=== PATIENT | male | born 1965 | race Caucasian/White ===

== ENCOUNTER 2016-12-25 00:50 | Emergency (ER) | payer OTHER ==
[~2016-12-25] VITALS: Ht 175.3 cm; Wt 87.7 kg
[~2016-12-25 00:50] MED LIST: BACTRIM,SEPT1 TABLET PO; CRESTOR10 MG PO; KEFLEX500 MG PO; NAPROSYN500 MG PO
[2016-12-25 02:09] VITALS: BP 137/94
== END 2016-12-25 02:10 | disposition home or self-care (01) ==
LOC: EME 00:50
DX: S20.211A Contusion of right front wall of thorax, initial encounter (principal); W22.09XA Striking against other stationary object, initial encounter; Y99.0 Civilian activity done for income or pay; F17.200 Nicotine dependence, unspecified, uncomplicated
CPT/HCPCS: 71100; 99281; 99283

== ENCOUNTER 2017-01-11 17:19 | Emergency (ER) | payer OTHER ==
[~2017-01-11] VITALS: Ht 175.3 cm; Wt 92.2 kg
[2017-01-11 18:07] LABS: HEMATOCRIT 44.9 % (38.0-50.0); MCH 30.7 PG (29.0-34.0); MCHC 33.4 G/DL (30.0-36.0); MCV 91.8 FL (86-99); RBC DIS.WIDTH-CV 13.5 % (11.8-14.6); RED BLOOD COUNT 4.89 M/uL (4.00-5.50); WHITE BLOOD COUNT 11.4 K/uL (4.1-10.2)
[2017-01-11 18:18] LABS: CHLORIDE 107 mEq/L (99-109); POTASSIUM 4.4 mEq/L (3.7-5.4); SODIUM 138 mEq/L (136-147)
[2017-01-11 18:20] LABS: GLUCOSE 97 mg/dL (70-99)
[2017-01-11 18:21] LABS: ANION GAP 9 MEQ/L (2-14)
[2017-01-11 18:24] LABS: GFR ESTIMATE (CALCULATED) > 59 mL/min/; UREA NITROGEN (BUN) 12 mg/dL (9-23)
[2017-01-11 18:28] LABS: TROP-I INTERPRETATION NEGATIVE; TROPONIN-I 0.01 ng/mL (0.0-0.30)
[2017-01-11 18:41] LABS: MEAN PLAT.VOLUME 10.2 uM^3 (9.0-12.4); PLATELET COUNT 274 K/uL (156-360)
[2017-01-11 19:18] LABS: ADD MIUA? NO; BILIRUBIN NEGATIVE; BLOOD NEGATIVE; COLOR YELLOW ((YELLOW)); GLUCOSE (STRIP) NEGATIVE; KETONES NEGATIVE; LEUKOCYTES NEGATIVE; NITRITE NEGATIVE; PROTEIN (STRIP) NEGATIVE; SPECIFIC GRAVITY 1.018 (1.000-1.030); UCUL ADDED? NO; UROBILINOGEN 0.2 MG/DL (0.2-1.0)
[2017-01-11 19:22] LABS: D-DIMER ELISA 0.19 mg/L FEU (< 0.57)
[2017-01-11 20:43] VITALS: BP 131/85
== END 2017-01-11 20:49 | disposition home or self-care (01) ==
LOC: EME 17:19
PROVIDERS: Emergency Medicine
DX: R42 Dizziness and giddiness (principal); R07.9 Chest pain, unspecified; D72.829 Elevated white blood cell count, unspecified; F17.200 Nicotine dependence, unspecified, uncomplicated
CPT/HCPCS: 71020; 80048; 81003; 84484; 85027; 85379; 93005; 99281; 99284

== ENCOUNTER 2017-01-30 13:46 | Emergency (ER) | payer OTHER ==
[~2017-01-30] VITALS: Ht 175.3 cm; Wt 90.5 kg
[2017-01-30] MEDS ORDERED: ROSUVASTATIN CA10 MG PO (13:53)
[2017-01-30 15:29] VITALS: BP 126/81
== END 2017-01-30 15:29 | disposition home or self-care (01) ==
LOC: EME 13:46
PROC: 0HQFXZZ Repair Right Hand Skin, External Approach (ICD-10-PCS; principal; 2017-01-30)
DX: S61.212A Laceration without foreign body of right middle finger without damage to nail, initial encounter (principal); W23.0XXA Caught, crushed, jammed, or pinched between moving objects, initial encounter; Y92.812 Truck as the place of occurrence of the external cause
CPT/HCPCS: 73140; 99281; 99284

== ENCOUNTER 2018-03-23 02:29 | Emergency (ER) | payer OTHER ==
[~2018-03-23] VITALS: Ht 175.3 cm; Wt 87.0 kg
[~2018-03-23 02:29] MED LIST changes: +ROSUVASTATIN CA10 MG PO
[2018-03-23 06:31] VITALS: BP 155/84
== END 2018-03-23 06:32 | disposition home or self-care (01) ==
LOC: EME 02:29
DX: S93.602A Unspecified sprain of left foot, initial encounter (principal); X50.1XXA Overexertion from prolonged static or awkward postures, initial encounter
CPT/HCPCS: 73630